=== PATIENT | female | born 1960 | race Caucasian/White ===

== ENCOUNTER → 2018-09-08 | Outpatient (CLI) | payer OTHER ==
--- NOTE | 2018-09-08 09:22 | KCIC ---
Complete abdomen ultrasound study Clinical indications: Autoimmune hepatitis. Abdominal pain. FINDINGS: The pancreas is not completely visualized in this study. What is visualized is homogeneous without focal enlargement. No gallstones are seen within the gallbladder. A small amount of biliary sludge is seen within the gallbladder. No gallbladder wall thickening is evident. No pericholecystic free fluid is seen. The extrahepatic bile duct measures 2.6 mm in caliber. The liver is mildly enlarged measuring 18 cm in length. No hepatic mass is seen. The length of the right kidney is 11.6 cm and the length of the left kidney is 11.5 cm. No hydronephrosis or perinephric fluid collection or renal mass is seen on either side. The spleen measures 10.5 cm in length which is normal. No focal aneurysmal dilatation of the abdominal aorta is seen. The intrahepatic portion of the IVC is unremarkable. No ascites is seen within the upper abdomen. IMPRESSION: Mild hepatomegaly. Mild biliary sludge within the gallbladder. Electronically signed by: Jorge Luis Cervantes MD (09/08/2018 9:19 AM) [facility]
== END | disposition home or self-care (01) ==
LOC: KCIC US 07:53
PROVIDERS: ATTEND Internal Medicine
DX: R16.0 Hepatomegaly, not elsewhere classified (principal); K75.4 Autoimmune hepatitis; E03.9 Hypothyroidism, unspecified; E78.5 Hyperlipidemia, unspecified; G47.30 Sleep apnea, unspecified
CPT/HCPCS: 76700